=== PATIENT | male | born 1945 | race Caucasian/White ===

== ENCOUNTER 2017-02-11 10:29 | Day surgery (SDC) | payer MEDICARE, OTHER ==
[~2017-02-11] VITALS: Ht 180.3 cm; Wt 144.1 kg
[2017-02-11] MEDS ORDERED: ACCUPRIL40 MG PO (11:00)
[2017-02-11] MEDS ORDERED: BAYER CHEWABLE81 MG PO (11:01)
[2017-02-11] MEDS ORDERED: ALEVE220 MG PO (11:02)
[2017-02-11 11:10] VITALS: BP 163/94; Ht 180.3 cm; Wt 144.1 kg
[2017-02-11 11:41] LABS: MCH 31.2 pg (26.0-34.0); MCV 91.6 fL (80.0-100.0); MEAN PLATELET VOLUME 10.7 fL (7.4-10.4); RBC 5.13 10x6/uL (4.20-6.10); RDW 12.8 % (11.5-14.5); WBC 6.6 10x3/uL (4.8-10.8)
--- NOTE | 2017-02-11 14:56 | NUR ---
1445 DISCHARGE INSTRUCTIONS COMPLETE. PT HAS NO QUESTIONS OR CONCERNS AT THIS TIME. ESCORTED OUT BY VOLUNTEER.
--- NOTE | 2017-02-16 12:43 | OP ---
PATIENT NAME: GAURANG QUINTERO MEDICAL RECORD: [id number] :47 LOCATION:D.OPS ADMISSION DATE: SURGEON: ERIK OLIVEROS DO DATE OF OPERATION: 02/11/2017 PROCEDURE: Colonoscopy with polypectomy. INDICATIONS FOR PROCEDURE: Screening colonoscopy. SCOPE: Olympus video pediatric colonoscope. MEDICATIONS: Propofol 750 mg IV per anesthesia. WITHDRAWAL TIME: 16 minutes. ESTIMATED BLOOD LOSS: Minimal. COMPLICATIONS: None. FINDINGS: Informed consent was given. The patient was made comfortable with the above medication. After reaching an adequate level of sedation by slow IV push, the patient was placed on his left side. A digital rectal examination was performed and it was normal. The endoscope was then advanced under direct visualization through the rectum to the terminal ileum. The scope was slowly withdrawn and mucosa was carefully examined. The prep quality was good. There was evidence of moderate diverticulosis throughout the entire colon. In the cecum, there was a benign appearing flat polyp which measured approximately 8 mm in diameter. It was removed using hot forceps in a piecemeal fashion with fulguration of the residual surrounding tissue. In the ascending colon, there was a benign appearing sessile polyp, which measured approximately 6 mm in diameter. It was removed in 1 piece using a hot snare and completely retrieved. In the transverse colon, there was a benign appearing sessile polyp, which measured approximately 3-4 mm in diameter. It was removed using a hot forceps in 1 piece and completely retrieved. Retroflexion was not performed in the rectum, but internal hemorrhoids were visualized upon withdrawal. The scope was withdrawn completely from the patient. The patient tolerated the procedure well and there were no complications. IMPRESSION: 1. Three separate polyps as described above removed using hot snare and hot forceps. 2. Moderate diverticulosis of the entire colon. 3. Nonbleeding internal hemorrhoids. PLAN AND RECOMMENDATIONS: 1. Discharge home when recovery parameters are met. 2. Follow up biopsy specimen results. 3. High fiber diet. 4. Continue current medications. 5. Recall colonoscopy in 3 years. For 3 polyps as described above, which are likely all tubular adenomatous polyps. If pathology dictates otherwise, recommendations may change, but I anticipate a repeat in 3 years. TRANSINT:[id number] Voice Confirmation ID: [id number] DOCUMENT ID: [id number] OPERATIVE REPORT [id number] GAURANG QUINTERO ERIK OLIVEROS DO at 1243 CC: [id number] DICTATION DATE: 02/11/17 1349 MANAGER OPERATIONS AND PROCUREMENT: 02/11/171912 [facility] 02/11/17 [address] [address] [place] [address]
== END 2017-02-11 14:57 | disposition home or self-care (01) ==
LOC: D.OPS 10:29
PROVIDERS: Anesthesiology
DX: Z12.11 Encounter for screening for malignant neoplasm of colon (principal); I10 Essential (primary) hypertension; E66.9 Obesity, unspecified; D12.0 Benign neoplasm of cecum; D12.2 Benign neoplasm of ascending colon; D12.3 Benign neoplasm of transverse colon; Z01.812 Encounter for preprocedural laboratory examination